=== PATIENT | female | born 1965 | race African-American/Black ===

== ENCOUNTER 2017-04-09 15:12 | Outpatient (CLI) | payer MEDICARE, MEDICAID ==
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
== END 2017-04-09 15:13 | disposition home or self-care (01) ==
LOC: TBSIIMAG 15:12
PROVIDERS: ATTEND Neurological Surgery
DX: M47.26 Other spondylosis with radiculopathy, lumbar region (principal)
CPT/HCPCS: 72148

== ENCOUNTER 2017-05-28 15:35 | Outpatient (CLI) | payer MEDICARE, MEDICAID ==
--- NOTE | 2017-05-28 19:40 | RAD ---
THREE VIEWS LUMBAR SPINE: Date: 05-28-17 History: Low back pain. Pain down both legs. FINDINGS: Lateral, flexion, and extension views of the lumbar spine are provided. Based on lateral imaging, the re appear to be five non-rib bearing lumbar type vertebral bodies. There is mild grade I anterolisthe sis of L4 on L5 measuring approximately 4-5 mm without significant translational motion between the f lexion and extension views. Lumbosacral junction is mostly obscured on the provided images. There are prominent endplate degenerative changes at the L4-5 level. The vertebral body heights are within nor mal limits. IMPRESSION: 1. Prominent degenerative changes at the L4-5 level with grade I anterolisthesis of L4 on L5. 2. The lumbosacral junction is not well visualized due to overlying structures and technique of the e xam. POS: DONNY
== END 2017-05-28 15:36 | disposition home or self-care (01) ==
LOC: TBSIIMAG 15:35
PROVIDERS: ATTEND Neurological Surgery
DX: M43.16 Spondylolisthesis, lumbar region (principal); M47.896 Other spondylosis, lumbar region
CPT/HCPCS: 72100

== ENCOUNTER 2018-03-12 12:37 | Outpatient (CLI) | payer MEDICARE, MEDICAID ==
--- NOTE | 2018-03-12 13:33 | CT ---
CT LUMBAR SPINE NONCONTRAST: History: Low back pain. Spondylolisthesis. FINDINGS: Vertebral body heights are maintained. No acute fracture or dislocation. T12-L1, L1-2, L2-3, L3-4: Mild osteophytosis. Central canal and neural foramina are patent. L4-5: Disc space narrowing and gas disc phenomenon. Minimal degenerative spondylolisthesis. Posterior disc bulge and circumferential degenerative changes results in mild stenosis of the central canal. T here is mild right and moderate left foraminal stenoses. L5-S1: Gas disc phenomenon. Mild posterior disc bulge slightly effaces the ventral aspect of the thec al sac. Osteophytosis of the facets. Severe bilateral foraminal stenoses. IMPRESSION: Degenerative changes of the lower lumbar spine, including severe bilateral foraminal stenoses at the lumbosacral junction. Clinical correlation regarding each L5 dermatome is required. POS: DONNY
== END 2018-03-12 12:38 | disposition home or self-care (01) ==
LOC: TBSIIMAG 12:37
PROVIDERS: ATTEND Neurological Surgery
DX: M43.16 Spondylolisthesis, lumbar region (principal); M47.896 Other spondylosis, lumbar region; M99.83 Other biomechanical lesions of lumbar region
CPT/HCPCS: 72131

== ENCOUNTER 2019-05-04 19:27 | Emergency (ER) | payer MEDICARE, MEDICAID ==
[2019-05-04] MEDS ORDERED: Prochlorperazine 10 MG/2 ML VIAL ONE (20:29)
[2019-05-04] MEDS ORDERED: diphenhydrAMINE 50 MG/ML VIAL ONE (20:30)
[2019-05-04] MEDS ORDERED: Ketorolac Tromethamine 30 MG/ML VIAL ONE (20:30)
[2019-05-04] MEDS ORDERED: methylPREDNISolone Sod Succ/PF 125 MG/2 ML VIAL ONE (20:30)
[2019-05-04] MEDS ORDERED: Ketorolac Tromethamine 60 MG/2 ML VIAL ONE (22:21)
[2019-05-04] MEDS ORDERED: Prochlorperazine Maleate 5 MG TAB ONE (22:21)
[2019-05-04] MEDS ORDERED: diphenhydrAMINE 25 MG CAP ONE (22:21)
[2019-05-04] MEDS ORDERED: Magnesium 5 GM/10 ML VIAL ONE (22:41)
== END 2019-05-04 23:03 | disposition home or self-care (01) ==
LOC: SCSER 19:27
DX: G43.909 Migraine, unspecified, not intractable, without status migrainosus (principal); I10 Essential (primary) hypertension; D64.9 Anemia, unspecified; F31.9 Bipolar disorder, unspecified; Z79.899 Other long term (current) drug therapy
CPT/HCPCS: 96372; 99283; J0780; J1200; J1885; J2930; J3475; Q0163; Q0164

== ENCOUNTER 2019-05-06 09:21 | Emergency (ER) | payer MEDICARE, MEDICAID ==
[2019-05-06] MEDS ORDERED: diphenhydrAMINE 25 MG CAP ONE (09:41)
[2019-05-06] MEDS ORDERED: Ketorolac Tromethamine 30 MG/ML VIAL ONE (09:41)
[2019-05-06] MEDS ORDERED: Metoclopramide HCl 10 MG/2 ML VIAL ONE (09:41)
--- NOTE | 2019-05-06 10:02 | RAD ---
Chest AP view INDICATION: Neck, throat and chest pain COMPARISON: Two-view chest radiograph dated September 23, 2013 FINDINGS: Lungs:The lungs are clear Cardiac silhouette:The heart is magnified by exam technique. Pulmonary vasculature:Normal Pleural spaces:No pleural effusion or pneumothorax is demonstrated. Upper abdomen:No abnormality seen. Osseous structures: No acute osseous abnormality. Additional findings:None. IMPRESSION: No acute cardiopulmonary abnormality.
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
--- NOTE | 2019-05-06 10:10 | RAD ---
XR Foot Rt 3 View STANDARD INDICATION: Right foot injury and pain COMPARISON: None. FINDINGS: Bones: There are obliquely oriented mildly displaced fractures involving the second, third and fourth metatarsal head and neck regions. There is diffuse osteopenia. There is a obliquely oriented fracture involving the dorsal medial head of the great toe metatarsal. There is postprocedural change consistent with the prior ankle fracture repair. The fractures appear well-healed. Joints: Joints spaces appear preserved. Lisfranc alignment: Lisfranc alignment appears within normal limits. Soft tissues: No soft tissue injury demonstrated. No radiographic foreign body demonstrated. IMPRESSION: Fractures involving the great toe metatarsal head, second through fourth digit metatarsal head and neck regions.
== END 2019-05-06 11:00 | disposition home or self-care (01) ==
LOC: ERS 09:21
DX: S92.311A Displaced fracture of first metatarsal bone, right foot, initial encounter for closed fracture (principal); S92.321A Displaced fracture of second metatarsal bone, right foot, initial encounter for closed fracture; S92.331A Displaced fracture of third metatarsal bone, right foot, initial encounter for closed fracture; S92.342A Displaced fracture of fourth metatarsal bone, left foot, initial encounter for closed fracture; S50.812A Abrasion of left forearm, initial encounter; I10 Essential (primary) hypertension; G43.909 Migraine, unspecified, not intractable, without status migrainosus; F31.9 Bipolar disorder, unspecified; V43.52XA Car driver injured in collision with other type car in traffic accident, initial encounter
CPT/HCPCS: 29515; 71045; 96365; 96375; J1885; J2765; Q0163